=== PATIENT | female | born 1985 | race Caucasian/White ===

== ENCOUNTER 2019-01-09 23:07 | Emergency (ER) | payer OTHER ==
[~2019-01-09] VITALS: Ht 165.1 cm; Wt 81.7 kg
[2019-01-10] MEDS ORDERED: BACTRIM DS TAB1 EACH PO (00:01)
[2019-01-10 01:11] VITALS: BP 133/80
== END 2019-01-10 01:11 | disposition home or self-care (01) ==
LOC: ER 23:07
DX: L02.31 Cutaneous abscess of buttock (principal)

== ENCOUNTER 2019-03-06 15:32 | Emergency (ER) | payer OTHER ==
[~2019-03-06] VITALS: Ht 170.2 cm; Wt 99.8 kg
[~2019-03-06 15:32] MED LIST: BACTRIM DS TAB1 EACH PO
[2019-03-06 15:33] VITALS: BP 121/84
[2019-03-06] MEDS ORDERED: BACTRIM DS TAB1 EACH PO (15:58)
[2019-03-06] MEDS ORDERED: CENTANY30 GM NASAL (16:02)
[2019-03-06] MEDS ORDERED: HIBICLENS118 ML TOP (16:02)
== END 2019-03-06 16:06 | disposition home or self-care (01) ==
LOC: ER 15:32
DX: L02.31 Cutaneous abscess of buttock (principal); L02.413 Cutaneous abscess of right upper limb; L02.415 Cutaneous abscess of right lower limb

== ENCOUNTER 2020-02-18 18:21 | Emergency (ER) | payer OTHER ==
[~2020-02-18] VITALS: Ht 170.2 cm; Wt 99.8 kg
[~2020-02-18 18:21] MED LIST changes: +CENTANY30 GM NASAL; +HIBICLENS118 ML TOP
[2020-02-18 18:56] LABS: URINE BLOOD 1+ (Negative); URINE CLARITY CLEAR; URINE COLOR YELLOW; URINE GLUCOSE-RANDOM* NEGATIVE (Negative); URINE KETONES 3+ (Negative); URINE LEUKOCYTES-REFLEX NEGATIVE (Negative); URINE NITRITE-REFLEX NEGATIVE (Negative); URINE PROTEIN (DIPSTICK) TRACE (Negative); URINE SPECIFIC GRAVITY 1.025 (1.005-1.035)
[2020-02-18 18:59] LABS: ICTOTEST (BILI CONFIRMATORY) Negative (Negative); URINE BILIRUBIN NEGATIVE (Negative)
[2020-02-18 19:00] LABS: URINE REDUCING SUBSTANCE NEGATIVE
[2020-02-18 19:09] LABS: BACTERIA-REFLEX 1-9 Few /HPF (None Seen); CASTS None Seen /LPF (None Seen); CRYSTALS None Seen /LPF (None Seen); SQUAMOUS 4-10 Moderate /LPF (0-3); URINE WBC-REFLEX 0-5 Rare /HPF (0-5)
[2020-02-18 20:26] LABS: ABSOLUTE NEUTROPHILS 8.1 thou/uL (1.4-8.2); BASOPHILS 0.6 % (0.0-2.0); HEMATOCRIT 45.3 % (37.0-47.0); HEMOGLOBIN 15.5 gm/dL (12.0-15.0); LYMPHOCYTES 11.3 % (24.0-44.0); MCH 31.4 pg (26.0-34.0); MCHC 34.3 g/dL (28.0-37.0); MCV 91.5 fL (80.0-100.0); MONOCYTES 8.9 % (1.0-8.0); PLATELET COUNT 236 thou/uL (150-400); POLYS 79.2 % (36.0-66.0); RBC 4.95 mil/uL (4.20-5.00); RDW 13.2 % (10.5-14.5); WBC 10.2 thou/uL (4.0-11.0)
[2020-02-18 20:35] LABS: CALCIUM 8.4 mg/dL (8.5-10.1); CREATININE 0.8 mg/dL (0.6-1.0); POTASSIUM 3.4 mmol/L (3.5-5.1)
[2020-02-18 20:42] LABS: ALBUMIN 3.2 g/dL (3.4-5.0); TOTAL BILIRUBIN 0.4 mg/dL (0.2-1.0); TOTAL PROTEIN 7.4 g/dL (6.4-8.2)
[2020-02-18] MEDS ORDERED: TRAMADOL 50 MG50 MG PO (22:34)
[2020-02-18] MEDS ORDERED: DOXYCYCLINE 10100 MG PO (22:34)
[2020-02-18 22:38] VITALS: BP 122/84
== END 2020-02-18 23:10 | disposition home or self-care (01) ==
LOC: ER 18:21
PROVIDERS: Emergency Medicine; Physician Assistant
DX: J18.9 Pneumonia, unspecified organism (principal); M54.5 Low back pain; F17.210 Nicotine dependence, cigarettes, uncomplicated